=== PATIENT | female | born 1990 | race Caucasian/White ===

== ENCOUNTER → 2017-06-17 08:35 | Outpatient (CLI) | payer BC, SELFPAY ==
--- NOTE | 2017-06-17 08:40 | AS_ITS ---
Renal Arterial Duplex Indications: 405.91 Unspecified renovascular hypertension. IMPRESSIONS 1. The right renal artery appears normal. 2. The left renal artery appears normal. 3. No evidence of renal artery stenosis, bilaterally. Complete renal arterial duplex. Duplex scan and Doppler flow study including spectral analysis, color and braga scale imaging. Height: Height: 160cm. Height: 63in. Weight: Weight: 49.9kg. Weight: 109.8lb. Body mass index: BMI: 19.5kg/m^2. Body surface area: BSA: 1.49m^2. Location: Vascular laboratory. Patient status: Outpatient. Tables: Arterial flow: + +--------+--------+ Location V sys V ed + +--------+--------+ Aorta - mid 69cm/s 7.4cm/s + +--------+--------+ Right renal - proximal 170cm/s 74.1cm/s + +--------+--------+ Right renal - mid 113cm/s 36.7cm/s + +--------+--------+ Right renal - distal 90.3cm/s 44.8cm/s + +--------+--------+ Right renal - Origin 154cm/s 71cm/s + +--------+--------+ Left renal - proximal 194cm/s 97.9cm/s + +--------+--------+ Left renal - mid 157cm/s 76.7cm/s + +--------+--------+ Left renal - distal 103cm/s 50.7cm/s + +--------+--------+ Left renal - Origin 162cm/s 75cm/s + +--------+--------+ Artery mapping: + +--------+ Location Diameter + +--------+ Abdominal aorta - mid 1.4mm + +--------+ Renal anatomy: + +-----+-----+ Left Right + +-----+-----+ Long axis 9.7cm 10cm + +-----+-----+ Short axis 4.4cm 4.3cm + +-----+-----+ Velocity ratios: + +-----+ V sys + +-----+ Right renal/aortic 2.5 + +-----+ Left renal/aortic 2.8 + +-----+ (Report amended ) Electronically signed by: Saad Car [id number]
== END ==
PROVIDERS: Family Provider Internal Medicine Adolescent Medicine; PCP Internal Medicine Adolescent Medicine; Visit Provider Internal Medicine
DX: I10 Essential (primary) hypertension (principal)
CPT/HCPCS: 93976

== ENCOUNTER → 2019-05-24 16:38 | Outpatient (CLI) | payer BC, SELFPAY ==
[2019-05-26 11:48] LABS: HIV Screen 4th Generation wRfx Non Reactive (Non Reactive); Hepatitis C Antibody <0.1 s/co ratio (0.0-0.9); Rapid Plasma Reagin Ab Titer Non Reactive (NonRea<1:1)
== END ==
PROVIDERS: Visit Provider Nurse Practitioner Obstetrics & Gynecology
DX: Z11.3 Encounter for screening for infections with a predominantly sexual mode of transmission (principal)
CPT/HCPCS: 86592; 86703; 87380; G0432

== ENCOUNTER → 2019-07-01 10:27 | Outpatient (CLI) | payer BC, SELFPAY ==
--- NOTE | 2019-07-01 10:33 | XR_ITS ---
PROCEDURE: XR HAND RT MIN 3V CLINICAL INDICATION: R hand injury Posttraumatic pain COMPARISON: No exams were available for comparison FINDINGS: No fracture or dislocation. No lytic or blastic change. There is normal mineralization. The joint spaces are well-preserved. No significant degenerative/arthritic changes. No erosive changes evident. Other findings:There is a faint calcification at the tip of the ulnar styloid process and could be due to an old injury or ununited ossification center IMPRESSION: Negative right hand. The The old avulsion fracture versus ununited ossification center at tip of the ulna Dictated by: Yonatan Leigh MD 07/01/2019 13:16 Electronically signed by Yonatan Leigh MD in [facility] 07/01/2019 13:16
== END ==
PROVIDERS: Visit Provider Orthopaedic Surgery
DX: M79.641 Pain in right hand (principal)
CPT/HCPCS: 73130

== ENCOUNTER 2019-11-20 18:40 | Emergency (ER) | payer BC, SELFPAY ==
[2019-11-20 18:52] VITALS: BP 164/104; PULSE 88; RESP 12; O2SAT 100; BMI 19.8
--- NOTE | 2019-11-20 18:52 | XR_ITS ---
PROCEDURE: XR ANKLE RT MIN 3V CLINICAL INDICATION: twisted ankle COMPARISON: No exams were available for comparison FINDINGS: Is minor diffuse soft tissue swelling laterally. The medial and lateral malleolus appear intact and the ankle mortise is normal. IMPRESSION: Minor soft tissue swelling, negative for acute fracture Dictated by: Dr. Butch Stevens MD 11/20/2019 19:28 Dr. Butch Stevens MD in [facility] 11/20/2019 19:28
--- NOTE | 2019-11-20 18:52 | XR_ITS ---
PROCEDURE: XR FOOT RT MIN 3V CLINICAL INDICATION: twisted ankle COMPARISON: No exams were available for comparison FINDINGS: No fracture or dislocation. No lytic or blastic change. There is normal mineralization. The joint spaces are well-preserved. No significant degenerative/arthritic changes. No erosive changes evident. Other findings:None. IMPRESSION: No acute findings. Dictated by: Dr. Butch Stevens MD 11/20/2019 19:30 Dr. Butch Stevens MD in [place] 11/20/2019 19:30
--- NOTE | 2019-11-20 19:19 | HMH.EDUTC ---
[facility] [place] Disposition Clinical Impression: Ankle sprain Qualifiers: Encounter type: initial encounter Involved ligament of ankle: other ligament Laterality: right Qualified Code(s): S93.491A - Sprain of other ligament of right ankle, initial encounter Foot sprain Qualifiers: Encounter type: initial encounter Laterality: right Qualified Code(s): S93.601A - Unspecified sprain of right foot, initial encounter Disposition: Home, Self-Care Condition on Discharge: Good Instructions: How To Perform RICE (Rest, Ice, Compress, Elevate), How to Use Crutches, Ankle Sprain, DI for Foot Sprain Additional Instructions: *weight bearing as tolerated *RICE, Rest the extremity, Ice 15-20 minutes 3-4 times daily, Compress- wear the denilson wrap as discussed as much as possible to help reduce swelling and pain, Elevate the extremity when at rest *Denilson wrap is for support and help control swelling, use it except in the shower. Be sure that is not to tight but not to loose either *Elevate when resting *Ibuprofen every 6-8 hours as needed for pain an inflammation. If need something more can take Tylenol in between doses of Ibuprofen to help Immediately follow up with your family doctor for new or worsening of symptoms, or no noticeable improvement over the next 3-5 days Use Crutches for ambulation Follow up with Family Doctor if no improvement Return if needed Follow up with Dr Gaol if no improvement or any worsening of symptoms Referrals: Luis Doherty MD [Primary Care Provider] - As needed Ally Galo DPM [Staff Physician] - Time of Disposition: 19:36 Medical Decision Making - Jesse Inquiry Pt receiving controlled substance: No Jesse was queried for this patient: No Vital Signs: 11/20/19 18:52 Pulse Rate [Radial] 88 Respiratory Rate 12 Blood Pressure [Right Arm] 164/104 H Blood Pressure Mean [Right Arm] 124 Blood Pressure Source [Right Arm] Automatic Cuff Blood Pressure Position [Right Arm] Sitting 02 Sat by Pulse Oximetry 100 Oxygen Delivery Method Room Air Orders (Tests/Meds): ORDERS Category Date Time Status Foot XR right minimum 3 views [XR foot RT min 3V] Stat Exams 11/20/19 18:52 Taken - Radiology Data #1 Image(s): Ankle Image Reviewed: Yes I have reviewed radiologist's interpretation Preliminary Findings: No Fracture Seen #2 Image(s): Foot/Toes Image Reviewed: Yes I reviewed the patient's radiology image Preliminary Findings: No Fracture Seen [facility] [place] HPI - General Stated complaint: AO [id number] injured R ankle Time Seen by Provider: 11/20/19 19:19 Mode of Arrival: Wheelchair Source of Information: Patient Limitations: No Limitations Description of Symptoms (Recalled from Triage Doc. by RN): right ankle and inside of foot HEENT Symptoms (Recalled from RN notes): No Resp Symptoms (Recalled from RN notes): No Skin Symptoms (Recalled from RN notes): No MS Symptoms (Recalled from RN notes): Yes Functional Status (Recalled from RN notes): wnl - History of Present Illness Provider Complaint: Patient states that she stepping out of building and she rolled her right foot and ankle States that she has been having pain in the side of her foot ever since and hurts when she tries to walk on it States that she hasnt noticed any swelling but wanted to get it checked - Related Data Home Medications Medication Instructions Recorded Confirmed ascorbic acid (vitamin C) 500 mg mg PO cap 12/21/17 05/24/19 capsule Previous Rx's Medication Instructions Recorded medroxyprogesterone 150 mg/mL 150 mg IM [id number] #1 ml 08/04/19 intramuscular suspension Allergies Allergy/AdvReac Type Severity Reaction Status Date / Time cefaclor [CEFACLOR] Allergy Intermediate I-HIVES Verified 05/24/19 15:41 Sulfa (Sulfonamide Allergy Intermediate I-HIVES Verified 05/24/19 15:41 Antibiotics) [SULFA (SULFONAMIDE ANTIBIOTICS)] - Worker's Comp Is this a Worker's Comp case?: No [facility] History
[2019-11-20 19:44] VITALS: BP 164/104; PULSE 88; RESP 12; TEMP 36.7; O2SAT 100
== END 2019-11-20 19:46 | disposition home or self-care (01) ==
PROVIDERS: Emergency Provider Nurse Practitioner; PCP Internal Medicine Adolescent Medicine
DX: S93.491A Sprain of other ligament of right ankle, initial encounter (principal); S93.601A Unspecified sprain of right foot, initial encounter; X50.1XXA Overexertion from prolonged static or awkward postures, initial encounter; Y92.89 Other specified places as the place of occurrence of the external cause; Z88.1 Allergy status to other antibiotic agents; Z88.2 Allergy status to sulfonamides
CPT/HCPCS: 29515; 73610; 73630; 99203

== ENCOUNTER → 2020-02-14 13:05 | Outpatient (CLI) | payer BC, SELFPAY ==
--- NOTE | 2020-02-14 13:05 | US_ITS ---
PROCEDURE: US TRANSVAGINAL CLINICAL INDICATION: abnormal vaginal bleeding COMPARISON: US TVP US TRANSVAGINAL PREG from 03/21/2015 FINDINGS: UTERUS: 6cm x 3cmx 3cm with a combined endometrial thickness of 1.2mm LEFT OVARY: [id number] with a volume of 5.6ml. RIGHT OVARY: [id number] with a volume of 8.2ml. Small follicles are present involving both ovaries nonspecific. There is bilateral ovarian blood flow. No cul-de-sac fluid. IMPRESSION: Negative pelvic ultrasound Dictated by: Yonatan Leigh MD 02/14/2020 18:19 Yonatan Leigh MD in [place] 02/14/2020 18:19
== END ==
PROVIDERS: PCP Internal Medicine Adolescent Medicine; Visit Provider Nurse Practitioner Obstetrics & Gynecology
DX: N93.9 Abnormal uterine and vaginal bleeding, unspecified (principal)
CPT/HCPCS: 76830

== ENCOUNTER → 2020-03-01 12:37 | Outpatient (CLI) | payer BC, SELFPAY ==
[2020-03-01 12:45] LABS: Basophils % 0.4 % (0.1-2.0); Eosinophils # 0.1 K/mm3 (0.0-0.4); Hematocrit 42.2 % (37.0-47.0); Hemoglobin 14.2 g/dL (12.2-16.2); Lymphocytes # 1.8 K/mm3 (0.7-4.5); Lymphocytes % 29.3 % (10-50); Mean Corpuscular HGB Conc 33.7 g/dL (31.8-35.4); Mean Corpuscular Hemoglobin 33.2 pg (27.0-31.2); Mean Corpuscular Volume 98.4 fl (81-99); Mean Platelet Volume 7.8 fl (7.4-10.4); Monocytes # 0.3 K/mm3 (0.1-1.0); Monocytes % 4.5 % (1.7-9.3); Neutrophils # 3.9 K/mm3 (1.8-7.8); Neutrophils % 64.8 % (37.0-80.0); Platelet Count 288 K/mm3 (142-424); Red Blood Count 4.29 M/mm3 (4.20-5.40); Red Cell Distribution Width 12.8 % (11.5-17.5)
[2020-03-01 12:54] LABS: Chloride 105 mmol/L (98-107); Sodium 139 mmol/L (136-145)
[2020-03-01 12:55] LABS: Potassium 3.8 mmoL/L (3.5-5.1)
[2020-03-01 12:57] LABS: Blood Urea Nitrogen 14 mg/dl (7-17); Estimated Glomerular Filt Rate 84 ml/min (>60); GFR (African American) 102 ML/MIN (>60)
[2020-03-01 12:58] LABS: Anion Gap 9.8 mEq/L (5-15); Calcium 9.5 mg/dl (8.4-10.2); Carbon Dioxide 28 mmol/L (22.0-30.0); Glucose 82 mg/dl (74-100)
[2020-03-01 13:40] LABS: HCG Qualitative, Serum Negative (Negative)
[2020-03-01 14:23] LABS: Coronavirus 19 IgG Antibody Negative (Negative); Coronavirus 19 IgM Antibody Negative (Negative)
== END ==
PROVIDERS: Visit Provider Nurse Practitioner Obstetrics & Gynecology
DX: Z01.818 Encounter for other preprocedural examination (principal); Z03.818 Encounter for observation for suspected exposure to other biological agents ruled out; Z30.09 Encounter for other general counseling and advice on contraception; N92.0 Excessive and frequent menstruation with regular cycle
CPT/HCPCS: 80048; 84703; 85025; 86328

== ENCOUNTER 2020-03-02 07:04 | Day surgery (SDC) | payer BC, SELFPAY ==
[2020-02-28 10:28] VITALS: BMI 20.9
[2020-03-02] VITALS (12 sets, daily range): BP systolic 115–154; BP diastolic 75–100; PULSE 74–98; RESP 12–18; TEMP 36.7–36.9; O2SAT 98–100
--- NOTE | 2020-03-02 07:50 | HMH.ANESCL ---
[facility] Anesthesia Checklist - Patient Identification Patient Identification: Arm Band, Verbal (Name & ) - Structural Data Admitted From: Home Planned Operative Procedure/s: Laparoscopic bilateral salpingectomy, hysteroscopy, D&C, Novasure Consent for Planned Operative Procedure(s) Verified: Yes Verified Documents: Surgical Consent, History and Physical - NPO Status Verified Time NPO: 19:00 - Chart Verification Results Verified: CBC, BMP - Additional verifications Patient : No Anesthesia Reactions: No Hx Blood Transfusions: No Blood Transfusion Reaction: No - Airway Assessment C-Spine Mobility Assessed: Yes TMJ Mobility Assessed: Yes Dentition: Good Dentition - Neurological Assessment Level of Consciousness: Awake, Alert, Appropriate, Follows Commands Hx Seizures: No Numbness or tingling in extremities: No - Anesthesia Plan Anesthesia Risk discussed: Yes Anesthesia Plan: Verified ASA Class: I Anesthesia Type: General [facility] History I have reviewed the patient's past medical history: Yes Medical History: Denies:: Cancer, Diabetes Mellitus Type 1, Diabetes Mellitus Type 2, Internal Pacemaker, MRSA, Seizures *Have you ever received a pneumonia vaccine?: No *Have you received a flu vaccine this season?: Yes Other Medical History: Denies: Blood Transfusion Reaction Anesthesia experience/problems:: None Laterality Cases: Left: Lumpectomy (Left neck lymph node) Other Surgeries: Yes: Other. No: Pacemaker Amputation: No Fractures: No - *Social History Smoking Status: Never smoker Alcohol Intake: never Alcohol Intake Frequency:: other Substance Use Type: denies use *Occupational Status:: employed Housing: house *Travel in the last 8 weeks: None Family Hx:: Cancer, Hyperlipidemia, Hypertension, Substance abuse
--- NOTE | 2020-03-02 09:08 | HMH.OPNOTE ---
Date of procedure: 03/02/20 Pre-op Diagnosis:: Desire for sterilization, menorrhagia Post-op Diagnosis:: Desire for sterilization menorrhagia Procedure performed:: Laparoscopic bilateral salpingectomy, hysteroscopy, dilation and curettage, perforation of uterine fundus Surgeon:: Meng Valentin MD REPLENISHMENT SPECIALIST:: Yaw Crabtree Anesthesia: GETA Estimated blood loss (mL): 50 Clinical Note:: She is a 29-year-old lady who complains of very heavy periods. She also expressed desire for sterilization. The risks and benefits of surgery as well as the irreversibility of bilateral salpingectomy were discussed with the patient prior to surgery Operative findings:: She had a normal-appearing anteverted uterus. The appendix appeared normal. The ovaries and tubes appeared normal. The uterus was normal. Operative note:: She was taken to the operating room where general anesthesia was found be adequate. She was prepped and draped in normal sterile fashion in the semilithotomy position. A weighted speculum was placed in the vagina and the anterior lip of the cervix was grasped with a tenaculum. I then inserted a Columba uterine manipulator into the cervical os. The balloon was then insufflated. I changed gloves and injected 10 cc of 0.5% ropivacaine around her umbilicus and made a small incision within the umbilicus. I inserted a Veress needle into the abdominal cavity. The peritoneal cavity was then insufflated with carbon dioxide gas to a pressure of 20 mmHg. I then inserted a 5 millimeter trocar under direct vision. I injected through and through the pubic hairline, made a small incision here and inserted an 8 mm trocar under direct vision. I identified the inferior epigastric artery on the left side, went lateral to these and injected through and through. I then placed a 5 mm trocar here under direct vision. The pelvis and upper abdomen were then inspected and the findings were as previously dictated. I grasped the right tube at the cornua and using harmonic scalpel on coagulation mode I cut through the tube. I then grasped the distal tube and using harmonic scalpel cut along the mesosalpinx. The tube was removed through 8 mm trocar site. This was similarly performed on the patient's left side. I then injected 30 cc of 0.5% ropivacaine into the pelvis. After assuring hemostasis the gas was let out of the abdomen and hemostasis was once again assured. The abdomen was then reinsufflated. The secondary trochars were removed under direct vision. The gas was let out her abdomen. The primary trocar was then removed. The 8 mm trocar site was closed deeply with 2-0 Vicryl suture followed by subcuticular 4-0 Monocryl suture. The 5 mm trocar sites were closed with subcuticular 4-0 Monocryl. Sterile dressings were applied. I then turned my attention to the hysteroscopic portion of the procedure. The patient was placed in lithotomy position weighted speculum placed in the vagina. The Columba uterine manipulator was then removed. I gently dilated the cervix to approximately 5 mm and then using a 5 mm hysteroscope I enter the uterine cavity. The findings were as previously dictated. I then performed a gentle curettage. I then inserted the NovaSure device within the uterine cavity. It would not run through its program. I then further inspected the endometrial cavity and there is a small perforation at the fundus of the uterus. As result of this elected to abandon the procedure. The patient tolerated the procedure well and was taken to the recovery room in excellent condition. All sponge instrument and needle counts were correct. The estimated blood loss was less than 25 cc. Condition: stable Disposition: PACU Specimens:: Endometrial curettings, bilateral fallopian tubes Complications:: Perforation of the fundus of the uterus.
--- NOTE | 2020-03-02 09:21 | HMH.ANESI ---
[facility] Anesthesia Record Part I Intake, IV Amount: 1,500 Estimated blood loss (mL): 0 Urine output (mL): 0 Blood Pressure: 141/87 SaO2: 99 Pulse Rate: 88 Respiratory Rate: 12 Temperature: 98.5 F Patient is:: Awake, Stable Stable to PACU at:: 09:15
--- NOTE | 2020-03-02 09:38 | PC.NURSE ---
pt shivering- states she is not cold. see emar for medicine tech
--- NOTE | 2020-03-02 13:56 | HMH.ANESII ---
[facility] Anesthesia Record Part II Discharge Time: 09:45 Destination: [facility] PACU nurse assessment reviewed?: Yes Patient Condition:: Good Anesthesia Complications:: None Swallowing reflex intact?: Yes Cyanosis?: No Blood Pressure: 147/94 Pulse Rate: 87 Temperature: 98.1 F Mental Status: Alert & Oriented Pain level:: 0 Nausea and/or vomitting:: None Intake, IV Amount: 1,500
== END 2020-03-02 10:31 | disposition home or self-care (01) ==
LOC: OR 07:06
PROVIDERS: PCP Internal Medicine Adolescent Medicine; Visit Provider Nurse Practitioner Obstetrics & Gynecology
PROC: (CPT 58700; principal; 2020-03-02 08:30)
DX: N92.0 Excessive and frequent menstruation with regular cycle (principal); Z30.2 Encounter for sterilization; S37.69XA Other injury of uterus, initial encounter; Z80.9 Family history of malignant neoplasm, unspecified
CPT/HCPCS: 58700; 58563; 96374; J2405; J2710

== ENCOUNTER 2020-10-09 17:16 | Emergency (ER) | payer BC, SELFPAY ==
[2020-10-09 17:18] VITALS: BP 152/95; PULSE 88; RESP 18; TEMP 36.8; O2SAT 99; BMI 21.2
--- NOTE | 2020-10-09 19:19 | HMH.EDUTC ---
[facility] [place] Clinical Impression: Superficial abrasion, Need for Tdap vaccination Cat bite Qualifiers: Encounter type: initial encounter Qualified Code(s): W55.01XA - Bitten by cat, initial encounter Disposition: Home, Self-Care Condition on Discharge: Good Instructions: DI for Abrasion, Tetanus, Diphtheria, Pertussis (Tdap) Vaccine, DI for Cat Bite Additional Instructions: Keep the wound clean and dry as much as possible. Apply the topical antibiotics (mupirocin) as directed to your leg. Take the antibiotics as directed. Cat bites require Augmentin (amoxicllin/clavulate) so I prescribed that. It can be hard on you belly, so eat food with it. Follow up with your primary care doctor. GO TO THE ER FOR ANY WORSENING SYMPTOMS OR CONCERNS Prescriptions: Amoxicillin/Potassium Clav [Augmentin 875-125 Tablet] 1 tab PO Q12H 10 Days #20 tab Transmission Status: Received by [facility] Mupirocin [Bactroban 2% Ointment 22gm tube] 1 applicatio TP TID 7 Days #1 tube Transmission Status: Received by [facility] Fluconazole [Diflucan 150mg tab] 150 mg PO ONCE #1 tab Transmission Status: Received by [facility] Referrals: Luis Doherty MD [Primary Care Provider] - Time of Disposition: 19:27 Medical Decision Making - Medical Records Medical records reviewed: No: I reviewed the patient's medical records. - Jesse Inquiry Pt receiving controlled substance: No Vital Signs: 10/09/20 17:18 10/09/20 19:36 Temperature 98.2 F 98.2 F Temperature Source Oral Pulse Rate 88 Pulse Rate [Left Radial] 88 Respiratory Rate 18 18 Blood Pressure 152/95 H Blood Pressure [Right Arm] 152/95 H Blood Pressure Mean [Right Arm] 114 Blood Pressure Source Automatic Cuff Blood Pressure Source [Right Arm] Automatic Cuff Blood Pressure Position Sitting Blood Pressure Position [Right Arm] Sitting 02 Sat by Pulse Oximetry 99 Oxygen Delivery Method Room Air Room Air [facility] [place]PI - General Stated complaint: cut by nail on L leg Time Seen by Provider: 10/09/20 19:00 Mode of Arrival: Ambulatory Source of Information: Patient Limitations: No Limitations Description of Symptoms (Recalled from Triage Doc. by RN): wants a tetanus shot due to a cut on her leg from a book shelf HEENT Symptoms (Recalled from RN notes): No Resp Symptoms (Recalled from RN notes): No Skin Symptoms (Recalled from RN notes): Yes MS Symptoms (Recalled from RN notes): No Functional Status (Recalled from RN notes): wnl - History of Present Illness Provider Complaint: She fell thru a chair that she was standing on to hang something on her wall. When she came down she got scratched on her right leg with a nail in the chair. She also got a cat bite on her left index finger yesterday. She is afraid it will get infected. - Related Data Home Medications Medication Instructions Recorded Confirmed Medroxyprogesterone Acetate 150 mg IM [id number] 02/28/20 03/21/20 [Depo-Provera] Multivitamin [One-Daily 1 each PO DAILY 02/28/20 03/21/20 Multi-Vitamin] Previous Rx's Medication Instructions Recorded Oxycodone HCl/Acetaminophen 1 - 2 tab PO Q4-6H PRN #20 tab 03/02/20 [Percocet 5/325mg tablet] Amoxicillin/Potassium Clav 1 tab PO Q12H 10 Days #20 tab 10/09/20 [Augmentin 875-125 Tablet] Fluconazole [Diflucan 150mg tab] 150 mg PO ONCE #1 tab 10/09/20 Mupirocin [Bactroban 2% Ointment 1 applicatio TP TID 7 Days #1 tube 10/09/20 22gm tube] Allergies Allergy/AdvReac Type Severity Reaction Status Date / Time cefaclor [CEFACLOR] Allergy Intermediate I-HIVES Verified 03/21/20 16:10 Sulfa (Sulfonamide Allergy Intermediate I-HIVES Verified 03/21/20 16:10 Antibiotics) [SULFA (SULFONAMIDE ANTIBIOTICS)] - Worker's Comp Is this a Worker's Comp case?: No [facility] History - Hepatitis A Screen Drug use history?: No High risk sexual behaviors?: No History of sexually transmi
[2020-10-09 19:36] VITALS: BP 152/95; PULSE 88; RESP 18; TEMP 36.8; O2SAT 99
== END 2020-10-09 19:37 | disposition home or self-care (01) ==
PROVIDERS: Emergency Provider Nurse Practitioner Family; PCP Internal Medicine Adolescent Medicine
DX: S60.411A Abrasion of left index finger, initial encounter (principal); S70.311A Abrasion, right thigh, initial encounter; W55.01XA Bitten by cat, initial encounter; W22.8XXA Striking against or struck by other objects, initial encounter; Z23 Encounter for immunization; Y92.019 Unspecified place in single-family (private) house as the place of occurrence of the external cause; I10 Essential (primary) hypertension; Z88.2 Allergy status to sulfonamides
CPT/HCPCS: 99202; G0463